=== PATIENT | female | born 1990 | race African-American/Black ===

== ENCOUNTER 2016-09-26 17:41 | Emergency (ER) | payer OTHER ==
[~2016-09-26] VITALS: Ht 170.2 cm; Wt 68.0 kg
[2016-09-26 17:42] VITALS: BP 137/75
[2016-09-26] MEDS ORDERED: IBUPROFEN 600 MG TAB PO ONE (21:00)
[2016-09-26] MEDS ORDERED: AMOX875T PO (21:22)
[2016-09-26] MEDS ORDERED: AUGMENTIN 875 MG TAB PO ONE (21:30)
[2016-09-27] MEDS ORDERED: MAGIC MOUTHWASH SUSPENSION BTL SSP ONE (07:30)
== END 2016-09-26 22:35 | disposition home or self-care (01) ==
LOC: M ED 18:49
DX: J02.0 Streptococcal pharyngitis (principal); F17.210 Nicotine dependence, cigarettes, uncomplicated